=== PATIENT | female | born 1995 | race Caucasian/White ===

== ENCOUNTER 2017-04-02 09:53 | Emergency (ER) | payer MEDICAID ==
[~2017-04-02] VITALS: Ht 154.9 cm; Wt 45.4 kg
--- NOTE | 2017-04-02 11:46 | NUR ---
pt ambulatory to er bed 11. c/o diffuse abdominal pain. nausea for days. pt thinks she maybe . vss. nad noted. awaiting md arnett.
[2017-04-02 12:33] LABS: APPEARANCE,URINE Clear (CLEAR); BILIRUBIN,URINE Negative (NEGATIVE); BLOOD, URINE Negative Ery/uL (NEGATIVE); COLOR,URINE Yellow (YELLOW); KETONES,URINE 15 (NEGATIVE); LEUKOCYTE ESTERASE ,URINE Small (NEGATIVE); NITRITE, URINE Negative (NEGATIVE); PROTEIN,URINE Negative (NEGATIVE); UGLUCOSE Negative (NEGATIVE)
[2017-04-02 12:44] LABS: BACTERIA,URINE Rare /HPF (None Seen); SQUAMOUS EPITHELIAL CELL,UR Few /HPF (None Seen)
[2017-04-02 12:45] LABS: URINE AMORPHOUS PHOSPHATES Few /HPF (None Seen)
[2017-04-02 13:35] LABS: BASOPHILS # (AUTO) 0.1 /CMM (0.0-0.2); BASOPHILS % (AUTO) 1.1 % (0.0-2.0); EOSINOPHILS # (AUTO) 0.1 /CMM (0.0-0.7); EOSINOPHILS % (AUTO) 1.4 % (0.0-6.0); HEMATOCRIT 41 % (33-45); HEMOGLOBIN 13.8 g/dL (11.5-14.8); LYMPHOCYTES % (AUTO) 26.4 % (20.0-44.0); MEAN CORPUSCULAR HEMOGLOBIN 32 PG (26.0-33.0); MEAN CORPUSCULAR HGB CONC 34 g/dl (31.0-36.0); MEAN CORPUSCULAR VOLUME 94 fL (82-100); MONOCYTES # (AUTO) 0.4 /CMM (0.1-1.30); MONOCYTES % (AUTO) 5.8 % (2.0-12.0); NEUTROPHILS # (AUTO) 5.1 /CMM (1.8-8.9); NEUTROPHILS % (AUTO) 65.3 % (43.0-81.0); PLATELET COUNT (AUTO) 243 /CMM (150-450); RED BLOOD CELL COUNT(AUTO) 4.31 MIL/uL (4.0-5.2); WHITE BLOOD COUNT (AUTO) 7.7 K/uL (4.3-11.0)
[2017-04-02 13:42] LABS: CALCIUM, SERUM 8.8 mg/dL (8.5-10.1); CREATININE 0.4 mg/dL (0.6-1.3); POTASSIUM 3.7 mmol/L (3.5-5.1)
--- NOTE | 2017-04-02 14:23 | NUR ---
Patient discharged to home in stable condition. Written and verbal after care instructions given. Patient verbalizes understanding of instruction.
[2017-04-02 14:44] VITALS: BP 125/66
== END 2017-04-02 14:45 | disposition home or self-care (01) ==
LOC: ER 10:00
DX: O23.11 Infections of bladder in pregnancy, first trimester (principal); Z3A.01 Less than 8 weeks gestation of pregnancy
CPT/HCPCS: 36415; 76856; 80048; 81001; 84702; 84703; 85025; 99285; A4606; Z7610; 81000-TC

== ENCOUNTER 2017-06-18 10:06 | Emergency (ER) | payer MEDICAID ==
[~2017-06-18] VITALS: Ht 157.5 cm; Wt 47.2 kg
[2017-06-18] MEDS ORDERED: ACETAMINOPHEN ES 500 MG TABLET PO ONE (10:30)
[2017-06-18] MEDS ORDERED: ACETAMINOPHEN ES 500 MG TABLET ONE (10:46)
--- NOTE | 2017-06-18 10:50 | NUR ---
PT AMBULATORY TO ER BED 16 C/O DIFFUSE ABDOMINAL PAIN X 2 DAYS. PT IS 13 WEEKS . DENIES NAUSEA AND VOMITING. ALSO C/O HEADACHE X TODAY W/ 1 EPISODE OF EPISTAXIS. 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 SEEN BY IOANA.
[2017-06-18 11:01] LABS: APPEARANCE,URINE Clear (CLEAR); BILIRUBIN,URINE Negative (NEGATIVE); BLOOD, URINE Negative Ery/uL (NEGATIVE); COLOR,URINE Yellow (YELLOW); KETONES,URINE Negative (NEGATIVE); LEUKOCYTE ESTERASE ,URINE Trace (NEGATIVE); NITRITE, URINE Negative (NEGATIVE); PROTEIN,URINE Negative (NEGATIVE); UGLUCOSE Negative (NEGATIVE); UROBILINOGEN,URINE 0.2 EU/dL (0.2)
[2017-06-18 11:15] LABS: RBC,URINE 0-2 /HPF (0-2)
[2017-06-18 11:16] LABS: BACTERIA,URINE Few /HPF (None Seen); SQUAMOUS EPITHELIAL CELL,UR Moderate /HPF (None Seen)
[2017-06-18 12:43] VITALS: BP 115/62
--- NOTE | 2017-06-18 12:43 | NUR ---
Patient discharged to home in stable condition. Written and verbal after care instructions given. Patient verbalizes understanding of instruction.
== END 2017-06-18 12:44 | disposition home or self-care (01) ==
LOC: ER 10:07
DX: O26.892 Other specified pregnancy related conditions, second trimester (principal); R82.71 Bacteriuria; R10.2 Pelvic and perineal pain; Z3A.15 15 weeks gestation of pregnancy
CPT/HCPCS: 76805; 81001; 87086; 99285; A4606; Z7610; 81000-TC

== ENCOUNTER 2018-12-30 18:35 | Emergency (ER) | payer MEDICAID, OTHER ==
[~2018-12-30] VITALS: Ht 157.5 cm; Wt 49.4 kg
[2018-12-30 18:39] VITALS: BP 100/56
--- NOTE | 2018-12-30 19:12 | NUR ---
PATIENT CAME IN TO THE ER DUE TO WORSENING BILAT EAR PAIN X 1 MONTH, R EAR BUZZING SINCE LAST NIGHT. ON ROOM AIR, BREATHING EVENLY AND UNLABORED. KEPT COMORTABLE, WILL CONTINUE TO MONITOR ACCORDINGLY.
== END 2018-12-30 19:40 | disposition home or self-care (01) ==
LOC: ER 18:35
DX: H61.21 Impacted cerumen, right ear (principal)

== ENCOUNTER 2021-09-09 13:45 | Emergency (ER) | payer OTHER ==
[~2021-09-09] VITALS: Ht 157.5 cm; Wt 46.7 kg
--- NOTE | 2021-09-09 13:50 | NUR ---
AT BEDSIDE FOR EVAL.
[2021-09-09 13:52] VITALS: BP 118/80
[2021-09-09] MEDS ORDERED: NEOM10DR11 EACH EAR (14:23)
[2021-09-09] MEDS ORDERED: AMOX-430 PO (14:23)
--- NOTE | 2021-09-09 14:28 | NUR ---
Patient discharged to home in stable condition. Written and verbal after care instructions given. Patient verbalizes understanding of instruction.
== END 2021-09-09 14:28 | disposition home or self-care (01) ==
LOC: ER 13:47
DX: H66.93 Otitis media, unspecified, bilateral (principal); H60.8X2 Other otitis externa, left ear; G89.29 Other chronic pain

== ENCOUNTER 2021-09-20 08:51 | Emergency (ER) | payer OTHER ==
[~2021-09-20] VITALS: Ht 152.4 cm; Wt 45.4 kg
[~2021-09-20 08:51] MED LIST: AMOX-430 PO; NEOM10DR11 EACH EAR
[2021-09-20 09:05] VITALS: BP 115/69
[2021-09-20] MEDS ORDERED: IBUP-1957 PO (09:22)
--- NOTE | 2021-09-20 09:29 | NUR ---
Patient discharged to home in stable condition. Written and verbal after care instructions given. Patient verbalizes understanding of instruction.
== END 2021-09-20 09:29 | disposition home or self-care (01) ==
LOC: ER 09:04
DX: H69.82 Other specified disorders of Eustachian tube, left ear (principal); Z79.899 Other long term (current) drug therapy

== ENCOUNTER 2024-03-10 09:46 | Emergency (ER) | payer BC, OTHER ==
[~2024-03-10] VITALS: Ht 157.5 cm; Wt 54.4 kg
[~2024-03-10 09:46] MED LIST changes: +IBUP-1957 PO
[2024-03-10 10:18] LABS: BASOPHILS % (AUTO) 0.7 % (0.0-2.0); EOSINOPHILS # (AUTO) 0.1 K/uL (0.0-0.7); EOSINOPHILS % (AUTO) 1.3 % (0.0-6.0); HEMATOCRIT 42 % (33-45); HEMOGLOBIN 14.1 g/dL (11.5-14.8); LYMPHOCYTES # (AUTO) 1.5 K/uL (0.8-4.8); LYMPHOCYTES % (AUTO) 29.4 % (20.0-44.0); MEAN CORPUSCULAR HEMOGLOBIN 32 PG (26.0-33.0); MEAN CORPUSCULAR HGB CONC 34 g/dl (31.0-36.0); MEAN CORPUSCULAR VOLUME 95 fL (82-100); MONOCYTES # (AUTO) 0.4 K/uL (0.1-1.30); NEUTROPHILS # (AUTO) 3.1 K/uL (1.8-8.9); NEUTROPHILS % (AUTO) 61.6 % (43.0-81.0); PLATELET COUNT (AUTO) 221 K/uL (150-450); RED BLOOD CELL COUNT(AUTO) 4.41 MIL/uL (4.0-5.2); RED CELL DISTRIBUTION WIDTH 13.3 % (11.5-15.0)
[2024-03-10 10:21] LABS: APPEARANCE,URINE CLEAR (CLEAR); BILIRUBIN,URINE NEGATIVE (NEGATIVE); BLOOD, URINE NEGATIVE Ery/uL (NEGATIVE); COLOR,URINE YELLOW (YELLOW); KETONES,URINE NEGATIVE (NEGATIVE); LEUKOCYTE ESTERASE ,URINE 1+ (NEGATIVE); NITRITE, URINE NEGATIVE (NEGATIVE); PH,URINE 6.5 (5.0-8.0); PROTEIN,URINE NEGATIVE (NEGATIVE); UGLUCOSE NEGATIVE (NEGATIVE); UROBILINOGEN,URINE 0.2 EU/dL (0.2)
[2024-03-10 10:23] LABS: PREGNANCY TEST URINE QUAL NEGATIVE (NEGATIVE)
[2024-03-10 10:26] LABS: CALCIUM, SERUM 9.2 mg/dL (8.5-10.1); CREATININE 0.4 mg/dL (0.6-1.3)
[2024-03-10 10:32] LABS: ALBUMIN 4.1 g/dL (3.4-5.0); BILIRUBIN,DIRECT 0.1 mg/dL (0.0-0.2); BILIRUBIN,TOTAL 0.4 mg/dL (0.2-1.0); TOTAL PROTEIN, SERUM 7.4 g/dL (6.4-8.2)
[2024-03-10 10:42] LABS: ADD URINE CULTURE YES; BACTERIA,URINE Few /HPF (None Seen); SQUAMOUS EPITHELIAL CELL,UR Moderate /HPF (None Seen); YEAST,URINE Few /HPF (None Seen)
[2024-03-10 10:43] LABS: RBC,URINE 0-2 /HPF (0-2)
[2024-03-10] MEDS ORDERED: KETOROLAC TROMETHAMINE 15 MG/ML VIAL ONE (11:27)
[2024-03-10] MEDS: IV NS 0.9% 1,000 ML BAG IV ONE (11:38)
[2024-03-10] MEDS: KETOROLAC TROMETHAMINE 15 MG/ML VIAL IV ONE (11:39)
[2024-03-10] MEDS ORDERED: CEFD300C3 PO (13:03)
[2024-03-10] MEDS ORDERED: IBUP-1955 PO (13:03)
[2024-03-10] MEDS ORDERED: FLUCONAZOLE (100 MG) 100 MG TABLET ONE (13:13)
[2024-03-10 13:17] VITALS: BP 110/66; TEMP 98.5; O2SAT 98
[2024-03-10] MEDS: FLUCONAZOLE (100 MG) 100 MG TABLET PO ONE (13:17)
== END 2024-03-10 13:18 | disposition home or self-care (01) ==
LOC: ER 10:06
DX: N39.0 Urinary tract infection, site not specified (principal); R10.31 Right lower quadrant pain; Z79.1 Long term (current) use of non-steroidal anti-inflammatories (NSAID); Z87.442 Personal history of urinary calculi; Z87.39 Personal history of other diseases of the musculoskeletal system and connective tissue
CPT/HCPCS: 99285; 96374; 76705; 96361; 85025; 80048; 87086; 83690; 80076; 84703; 81001; 36415; J7030; J1885

== ENCOUNTER 2025-03-06 12:20 | Emergency (ER) | payer BC ==
[~2025-03-06] VITALS: Ht 157.5 cm; Wt 56.7 kg
[~2025-03-06 12:20] MED LIST changes: +CEFD300C3 PO; +IBUP-1955 PO
[2025-03-06] MEDS ORDERED: ONDANSETRON HCL/PF 4 MG/2 ML VIAL ONE (12:52)
[2025-03-06] MEDS ORDERED: MORPHINE SULFATE INJ 4 MG/ML DISP.SYRIN ONE (12:53)
[2025-03-06 12:55] LABS: PLATELET COUNT (AUTO) 227 K/uL (150-450); RED BLOOD CELL COUNT(AUTO) 4.63 MIL/uL (4.0-5.2); RED CELL DISTRIBUTION WIDTH 13.2 % (11.5-15.0); WHITE BLOOD COUNT (AUTO) 5.5 K/uL (4.3-11.0)
[2025-03-06] MEDS: ONDANSETRON HCL/PF - ER 4 MG/2 ML VIAL IV ONE (12:59)
[2025-03-06] MEDS: MORPHINE SULFATE INJ 2 MG/ML DISP.SYRIN IV ONE (12:59)
[2025-03-06 13:22] LABS: ADD URINE CULTURE YES; APPEARANCE,URINE CLOUDY (CLEAR); BLOOD, URINE NEGATIVE Ery/uL (NEGATIVE); LEUKOCYTE ESTERASE ,URINE TRACE (NEGATIVE); NITRITE, URINE NEGATIVE (NEGATIVE); PREGNANCY TEST URINE QUAL NEGATIVE (NEGATIVE); SQUAMOUS EPITHELIAL CELL,UR Moderate /HPF (None Seen); UGLUCOSE NEGATIVE (NEGATIVE)
[2025-03-06 13:25] LABS: CALCIUM, SERUM 8.8 mg/dL (8.5-10.1); CREATININE 0.6 mg/dL (0.6-1.3); SODIUM SERUM 139.0 mmol/L (136-145); UREA NITROGEN, BLOOD 15.0 mg/dL (7-18)
[2025-03-06] MEDS ORDERED: IOHEXOL-350 100 ML VIAL IV ONE (13:26)
[2025-03-06 16:00] VITALS: BP 120/6; TEMP 98; O2SAT 99
== END 2025-03-06 16:01 | disposition home or self-care (01) ==
LOC: ER 12:20
DX: R10.22 Pelvic and perineal pain left side (principal); Z79.1 Long term (current) use of non-steroidal anti-inflammatories (NSAID)
CPT/HCPCS: 99285; 74177; 96374; 76856; 96375; 85025; 80048; 87086; 84703; 81001; 36415; J2270; J2405 ×2; Q9967